=== PATIENT | male | born 1980 | race Two or more races ===

== ENCOUNTER 2020-01-15 01:16 | Emergency (ER) | payer OTHER ==
[~2020-01-15] VITALS: Ht 175.3 cm; Wt 91.5 kg
[2020-01-15] MEDS ORDERED: HYDROmorphone 1 MG/ML, 1ML INJ IM ONE (03:00)
[2020-01-15] MEDS ORDERED: CLINDAMYCIN 300 MG CAPSULE PO ONE (03:00)
[2020-01-15] MEDS ORDERED: CLINDAMYCIN 300 MG CAPSULE ONE (03:02)
[2020-01-15] MEDS ORDERED: HYDROmorphone 1 MG/ML, 1ML INJ ONE (03:02)
--- NOTE | 2020-01-15 03:13 | NUR ---
PATIENT TOLERATED MEDICATION ADMINISTRATION WELL. NO NOTED ACUTE DISTRESS. PATIENT WAS GIVEN INFORMATION REGARDING WAIT TIMES AFTER INJECTIONS. PATIENT WAS ABLE TO COMMUNICATE POSSIBLE COMPLICATIONS RELATED TO ALLERGIC REACTIONS. PATIENT MADE INFORMED DECISION TO LEAVE PRIOR TO THE 30 MIN TIME FRAME AFTER MEDICATION ADMINISTRATION. TERRY WAS AMBULATORY WITHOUT COMPLICATIONS TO DISCHARGE DESK. IS THE PATIENT'S SAFE RIDE HOME. VERBALIZED UNDERSTANDING OF SELF CARE AND FOLLOW UP CARE AT HOME.
[2020-01-15 03:15] VITALS: BP 141/79
== END 2020-01-15 03:16 | disposition home or self-care (01) ==
LOC: ED 03:01
DX: K08.89 Other specified disorders of teeth and supporting structures (principal)
CPT/HCPCS: 96372; 99283; J1170

== ENCOUNTER 2020-12-21 17:25 | Emergency (ER) | payer OTHER ==
[~2020-12-21] VITALS: Ht 172.7 cm; Wt 85.0 kg
--- NOTE | 2020-12-21 17:50 | NUR ---
PT IN GOWN IN [facility]. PT ATTACHED TO VS MONITORS. VSS.
--- NOTE | 2020-12-21 18:20 | NUR ---
JB LUKE, AT BS.
[2020-12-21] MEDS ORDERED: DEXAMETHASONE 4 MG/ML, 1ML PO ONE (18:30)
[2020-12-21] MEDS ORDERED: DEXAMETHASONE 4 MG TABLET ONE (18:40)
--- NOTE | 2020-12-21 18:50 | NUR ---
REPORT RECEIVED FROM LASHA MIRANDA
--- NOTE | 2020-12-21 18:50 | NUR ---
PT MEDICATED PER MAR.
--- NOTE | 2020-12-21 18:55 | NUR ---
REPORT OF PT TO RUTH ZAMBRANO. ALL QUESTIONS ANSWERED.
[2020-12-21 18:58] VITALS: BP 112/73
--- NOTE | 2020-12-21 19:59 | NUR ---
Patient given discharge instructions and they have confirmed that they understand the instructions. Patient ambulatory with steady gait. NAD, all questions answered appropriately, denies additional needs at this time. No personal belongings left in room after discharge.
== END 2020-12-21 20:00 | disposition home or self-care (01) ==
LOC: ED 18:41
DX: J15.9 Unspecified bacterial pneumonia (principal); R06.02 Shortness of breath; F17.210 Nicotine dependence, cigarettes, uncomplicated
CPT/HCPCS: 71045; 99283; 99406; J1100